=== PATIENT | female | born 1990 | race Caucasian/White ===

== ENCOUNTER 2019-08-07 15:35 | Emergency (ER) | payer OTHER ==
[~2019-08-07] VITALS: Ht 170.2 cm; Wt 95.5 kg
[2019-08-07 16:44] VITALS: BP 142/78
[2019-08-07 17:35] LABS: INFLUENZA TYPE A NEGATIVE FOR TYPE A (NEGATIVE); INFLUENZA TYPE B POSITIVE FOR TYPE B (NEGATIVE)
[2019-08-07] MEDS ORDERED: IBUPROFEN 800 MG TABLET PO ONE (18:00)
[2019-08-07] MEDS ORDERED: OSELTAMIVIR PHOSPHATE 75 MG CAPSULE PO ONE (18:00)
== END 2019-08-07 18:10 | disposition home or self-care (01) ==
LOC: EMS 15:38
DX: J11.1 Influenza due to unidentified influenza virus with other respiratory manifestations (principal)
CPT/HCPCS: 87804